=== PATIENT | female | born 1975 | race Two or more races ===

== ENCOUNTER 2017-08-07 07:06 | Day surgery (SDC) | payer OTHER ==
[2017-08-06 09:21] LABS: Basophils # (auto) 0.1 uL; Basophils % (auto) 1.9 % (0.0-2.0); Eosinophils # (auto) 0.1 uL; Eosinophils % (auto) 2.1 % (0.0-7.0); Hematocrit 38.9 % (36.0-46.0); Hemoglobin 12.4 g/dL (12.2-16.2); Lymphocytes # (auto) 1.5 uL; Lymphocytes % (auto) 23.7 % (10.0-50.0); Mean Corpuscular Volume 87.7 fL (80.0-100.0); Mean Platelet Volume 7.4 fL (6.9-10.8); Monocytes # (auto) 0.4 uL; Monocytes % (auto) 6.1 % (0.0-12.0); Neutrophils # (auto) 4.1 uL; Neutrophils % (auto) 66.2 % (37.0-80.0); Platelet Count (auto) 409 10^3/uL (140-450); Red Cell Distribution Width 18.4 % (11.8-14.3); White Blood Cell 6.2 10^3/uL (4.4-10.8)
[2017-08-06 09:23] LABS: Urine Bilirubin Negative (Negative); Urine Blood 3+ /uL (Negative); Urine Color Yellow (Yellow); Urine Glucose Normal (Normal); Urine Ketone Negative (Negative); Urine Mucus FEW (None Seen); Urine Nitrite Negative (Negative); Urine RBC 655 /hpf (0 - 4); Urine Squamous Epithelial Cell FEW /hpf (<5); Urine Urobilinogen Normal (Negative)
[2017-08-06 09:34] LABS: Albumin 3.7 g/dL (3.4-5.0); BUN/Creatinine Ratio 14.8; INR 0.96 (0.9-1.15); Partial Thromboplastin Time 26.7 sec (22.64-33.71); Potassium 4.1 mmol/L (3.5-5.1); Prothrombin Time 10.5 sec (9.37-12.3)
[2017-08-06 09:36] LABS: Bilirubin, Total 0.3 mg/dL (0.2-1.0)
[~2017-08-07] VITALS: Ht 160 cm; Wt 77.1 kg
[2017-08-07] MEDS ORDERED: SODIUM CHLORIDE LOCK 10 ML ONE (14:06)
[2017-08-07] MEDS ORDERED: fentaNYL CITRATE 100 MCG/2 ML VL ONE (14:06)
[2017-08-07] MEDS ORDERED: ONDANSETRON HCL 4 MG/2 ML VIAL ONE (14:06)
[2017-08-07] MEDS ORDERED: MIDAZOLAM HCL 1MG/1ML-2 ML VIAL ONE (14:06)
[2017-08-07] MEDS ORDERED: PROPOFOL 10 MG/ML 20 ML IV ONE (14:06)
[2017-08-07] MEDS ORDERED: METOCLOPRAMIDE HCL 5MG/ml INJ 2ml VIAL IV ONE (14:15)
[2017-08-07] MEDS ORDERED: HYDROmorphone HCL 2 MG/ML VL IV PRN (14:15)
[2017-08-07] MEDS ORDERED: KETOROLAC TROMETH 30 MG/ML 1ML VIAL IV ONE (14:15)
[2017-08-07] MEDS ORDERED: ceFAZolin 1GM/50ML 50 ML IV ONE (14:31)
[2017-08-07] MEDS ORDERED: ONDANSETRON HCL 4 MG/2 ML VIAL IV PRN (15:30)
[2017-08-07 16:28] VITALS: BP 132/88
== END 2017-08-07 16:43 | disposition home or self-care (01) ==
LOC: SUR 07:06
PROVIDERS: ATTEND Specialist
DX: D25.9 Leiomyoma of uterus, unspecified (principal); N92.1 Excessive and frequent menstruation with irregular cycle; I10 Essential (primary) hypertension; Z3A.13 13 weeks gestation of pregnancy; R56.9 Unspecified convulsions
CPT/HCPCS: 36415; 58558; 80053; 81001; 84702; 85025; 85610; 85730; 86850; 86900; 86901; 88305; J0690; J2250; J2405; J2704; J3010

== ENCOUNTER 2025-03-03 14:04 | Inpatient (IN) | payer BC, OTHER ==
[~2025-03-03] VITALS: Ht 160 cm; Wt 86.9 kg
[2025-03-03] VITALS (11 sets, daily range): BP systolic 116–127; BP diastolic 74–87; PULSE 65–90; RESP 12–20; TEMP 97.4–98.6; O2SAT 93–100
--- NOTE | 2025-03-03 14:19 | ECG ---
[facility] Test Date: 2025-03-03 Test Time: 14:09:29 Pat Name: ТАТЬЯНА BETANCOURT Department: ER Room: 0208T Gender: F Underwriting Account Representative: HALEIGH : 1975 Requested By: EMERGENCY EMERGENCY Order Number: [id number] Reading MD: Jean Calle Measurements Intervals [place] Rate: 108 P: 48 NC: 169 QRS: 38 QRSD: 96 T: -10 QT: 356 QTc: 477 Interpretive Statements Sinus tachycardia Probable left atrial enlargement Low voltage, precordial leads Borderline T abnormalities, diffuse leads Electronically Signed On 03-05-2025 16:40:35 PDT by Jean Calle Please click the below link to view image of tracing.
--- NOTE | 2025-03-03 14:29 | ED.PDOC ---
HPI Comments 49 y/o F, with PMHx of HTN presents to the ED for CC of chest pain. Patient states, that she has been experiencing sharp substernal chest pain onset, last night (03/02/25). Patient relays, that she took x1 nitro at start of symptoms and experienced no relief; endorses taking 2nd Nitro with relief of symptoms. Patient comments, that this is her x3 episode in the last week. Patient denies recent cough, fever, palpitations, or shortness of breath. No other symptoms or modifying factors present at this time. Chief Complaint: Chest Pain Time Seen by MD: 14:18 Reviewed Notes: Nurses Notes, Medications, Allergies Allergies: Coded Allergies: NO KNOWN ALLERGIES (Unverified , 08/06/17) Home Meds No Active Prescriptions or Reported Meds Information Source: Patient Mode of Arrival: Ambulatory Severity: Moderate Timing: Days Duration: Since onset Prehospital treatment: None Location: Substernal Radiation: No Radiation Onset: At Rest Cardiac Risk Factors: HTN PE Risk Factors: None History of: Similar pain in past Modifying Factors: Nothing Associated Signs and Symptoms: None Past Medical History PAST MEDICAL HISTORY: HTN Surgical History: Denies all surgeries FUNDRAISING ASSISTANT History: Denies all FUNDRAISING ASSISTANT Hx Family History Family History: Unknown Social History Smoker: Non-Smoker Alcohol: Denies ETOH Use Drugs: Denies Drug Use Lives In: Home Constitutional: denies: chills, diaphoresis, fatigue, fever, malaise, sweats, weakness, others EENTM: denies: blurred vision, double vision, ear bleeding, ear discharge, ear drainage, ear pain, ear ringing, eye pain, eye redness, hearing loss, mouth pain, mouth swelling, nasal discharge, nose bleeding, nose congestion, nose pain, photophobia, tearing, throat pain, throat swelling, voice changes, others Respiratory: denies: cough, hemoptysis, orthopnea, SOB at rest, shortness of breath, SOB with excertion, stridor, wheezing, others Cardiovascular: reports: chest pain; denies: dizzy spells, diaphoresis, Dyspnea on exertion, edema, irregular heart beat, left arm pain, lightheadedness, palpitations, PND, syncope, others Gastrointestinal: denies: abdomen distended, abdominal pain, blood streaked bowels, constipated, diarrhea, dysphagia, difficulty swallowing, hematemesis, melena, nausea, poor appetite, poor fluid intake, rectal bleeding, rectal pain, vomiting, others Genitourinary: denies: abnormal vagina bleeding, burning, dyspareunia, dysuria, flank pain, frequency, hematuria, incontinence, pain, , vagina discharge, urgency, others Neurological: denies: dizziness, fainting, headache, left sided numbness, left sided weakness, numbness, paresthesia, pre-existing deficit, right sided numbness, right sided weakness, seizure, speech problems, tingling, tremors, weakness, others Musculoskeletal: denies: back pain, gout, joint pain, joint swelling, muscle pain, muscle stiffness, neck pain, others Integumetry: denies: bruises, change in color, change in hair/nails, dryness, laceration, lesions, lumps, rash, wounds, others Allergic/Immunocompromised: denies: Difficulty Healing, Frequent Infections, Hives, Itching, others Hematologic/Lymphatic: denies: anemia, blood clots, easy bleeding, easy bruising, swollen glands, others Endocrine: denies: excessive hunger, excessive sweating, excessive thirst, excessive urination, flushing, intolerance to cold, intolerance to heat, unexplained weight gain, unexplained weight loss, others Psychiatric: denies: anxiety, bipolar disorder, depression, hopeless, panic disorder, schizophrenia, sleepless, suicidal, others All Other Systems: Reviewed and Negative Physical Exam General Appearance: Moderate Distress HEENT: Normal ENT Inspection, Pharynx Normal, TMs Normal Neck: Full Range of Motion, Non-Tender, Normal, Normal Inspection Respiratory: Chest Non-Tender, Lungs Clear, No Accessory Muscle Use, No Respiratory Distress, Normal Breath Sounds Cardiovascular: No Edema, No JVD, No Murmur, No Gallop, Tachycardia Breast Exam: Deferred Gastrointestinal: No Organomegaly, Non Tender, No Pulsatile Mass, Normal Bowel Sounds, Soft Genitalia: Deferred Pelvic: Deferred Rectal: Deferred Extremities: No calf tenderness, Normal capillary refill, Normal inspection, Normal range of motion, Non-tender, No pedal edema Musculoskeletal : Apperance: Normal Neurologic: Alert, chef saucier II-XII nml as Tested, No Motor Deficits, Normal Affect, Normal Mood, No Sensory Deficits Cerebellar Function: Normal Reflexes: Normal Skin: Dry, Normal Color, Warm Lymphatic: No Adenopathy EKG EKG : Pulse Rate (adult): 108 Moyers: Normal Cardiac Rhythm: ST Block: None Hypertrophy: None ST: Normal Was a procedure done? Was a procedure done?: No CP Differential Dx Differential Diagnosis: N/A Differential Diagnosis: HTN Essential, HTN Accelerated Differential Diagnosis: Angina, Chest Wall Pain, Costochondritis, Esophageal reflux/spasm, Gastritis X-Ray, Labs, Meds, VS Vital Signs Date Time Temp Pulse Resp B/P (MAP) Pulse Ox O2 Delivery O2 Flow Rate FiO2 03/03/25 15:23 90 17 100 Room Air* 0 21 03/03/25 15:23 98.6 90 17 130/90 (103) 100 98.6 03/03/25 15:04 100 03/03/25 14:29 108 03/03/25 14:16 97.8 112 18 107/87 (94) 95 97.8 03/03/25 14:09 108 Lab Test 03/03/25 14:39 Range/Units White Blood Count 6.6 4.4-10.8 10^3/uL Red Blood Count 4.75 4.0-5.20 10^6/uL Hemoglobin 14.9 12.2-16.2 g/dL Hematocrit 42.6 36.0-46.0 % Mean Corpuscular Volume 89.5 80.0-100.0 fL Mean Corpuscular Hemoglobin 31.3 28.0-32.0 pg Mean Corpuscular Hemoglobin Concent 35.0 32.0-36.0 g/dL Red Cell Distribution Width 13.6 11.8-14.3 % Platelet Count 323 140-450 10^3/uL Mean Platelet Volume 7.8 6.9-10.8 fL Neutrophils (%) (Auto) 62.2 37.0-80.0 % Lymphocytes (%) (Auto) 26.7 10.0-50.0 % Monocytes (%) (Auto) 6.8 0.0-12.0 % Eosinophils (%) (Auto) 3.3 0.0-7.0 % Basophils (%) (Auto) 1.0 0.0-2.0 % Neutrophils # (Auto) 4.1 1.6-8.6 10 ^3/uL Lymphocytes # (Auto) 1.8 0.4-5.4 10 ^3/uL Monocytes # (Auto) 0.4 0-1.3 10 ^3/uL Eosinophils # (Auto) 0.2 0-0.8 10 ^3/uL Basophils # (Auto) 0.1 0-0.2 10 ^3/uL Nucleated Red Blood Cells 0.1 % Sodium Level 143 136-145 mmol/L Potassium Level 3.8 3.5-5.1 mmol/L Chloride Level 106 98-107 mmol/L Carbon Dioxide Level 26 20-31 mmol/L Anion Gap 11 5-15 Blood Urea Nitrogen 12 9-23 mg/dL Creatinine 0.73 0.550-1.02 mg/dL Glomerular Filtration Rate Calc 100 >90 mL/min BUN/Creatinine Ratio 16.4 10.0-20.0 Serum Glucose 126 H 74-106 mg/dL Calcium Level 9.7 8.7-10.4 mg/dL Troponin I High Sensitivity < 3 L </=34 ng/L Current Medications Medications (Trade) Dose Ordered Sig/Moses Route Start Time Stop Time Status Last Admin Aspirin 162 mg ONCE ONCE PO 03/03/25 14:30 03/03/25 14:31 DC 03/03/25 15:23 CXR: IMPRESSION: No evidence of acute disease. The patient's CBC and chemistry panel are within normal limits The 1st troponin level is negative The D-dimer is pending The patient was given aspirin 162 mg by mouth At this time, the patient is being admitted to the hospitalist A cardiology consult will be obtained. The patient understands and agrees with the management. Feel that this patient's ongoing chest pain could be acute myocardial ischemia Images Reviewed?: Images reviewed and evaluated by me Time of 1ST Reevaluation: 14:48 Reevaluation 1ST: Unchanged Patient Education/Counseling: Diagnosis, Treatment, Prognosis Family Education/Counseling: No Family Present Departure 1 Departure Time of Disposition: 15:48 Impression: Primary Impression: Acute myocardial ischemia Disposition: 09 ADMITTED INPATIENT Admit to: [facility] Condition: Fair e-Prescriptions No Active Prescriptions or Reported Meds Critical Care Note Critical Care Time?: No Stability Stability form required: No Heart Score Heart Score: Heart Score Response (Comments) Value History N/A 0 EKG N/A 0 Age N/A 0 Risk Factors N/A 0 Troponin N/A 0 Total 0 I personally scribed for IVÁN MEADOWS MD ([email or web address]) on 6/13/25 at 14:29. Electronically submitted by Yesenia Bray ([email or web address]). I personally scribed for IVÁN MEADOWS MD ([email or web address]) on 03/03/25 at 14:54. Electronically submitted by Yesenia Bray ([email or web address]). IVÁN MEADOWS MD Mar 03, 2025 14:29
--- NOTE | 2025-03-03 14:41 | DVH ---
CHEST RADIOGRAPH Indication: cp Technique: Frontal and lateral view of the chest was obtained Comparison: None FINDINGS: Lines and Tubes: None Lungs: Clear Pleura: No effusion. No pneumothorax. Cardiomediastinal contours: Unremarkable Bones: Unremarkable IMPRESSION: No evidence of acute disease.
[2025-03-03 14:53] LABS: Basophils # (auto) 0.1 10 ^3/uL (0-0.2); Eosinophils # (auto) 0.2 10 ^3/uL (0-0.8); Eosinophils % (auto) 3.3 % (0.0-7.0); Hematocrit 42.6 % (36.0-46.0); Hemoglobin 14.9 g/dL (12.2-16.2); Lymphocytes # (auto) 1.8 10 ^3/uL (0.4-5.4); Lymphocytes % (auto) 26.7 % (10.0-50.0); Mean Corpuscular Hemoglobin 31.3 pg (28.0-32.0); Mean Corpuscular Volume 89.5 fL (80.0-100.0); Monocytes # (auto) 0.4 10 ^3/uL (0-1.3); Monocytes % (auto) 6.8 % (0.0-12.0); Neutrophils # (auto) 4.1 10 ^3/uL (1.6-8.6); Neutrophils % (auto) 62.2 % (37.0-80.0); Nucleated Red Blood Cells % 0.1 %; Platelet Count (auto) 323 10^3/uL (140-450); Red Blood Cells 4.75 10^6/uL (4.0-5.20); Red Cell Distribution Width 13.6 % (11.8-14.3); White Blood Cell 6.6 10^3/uL (4.4-10.8)
[2025-03-03 15:04] LABS: Chloride 106 mmol/L (98-107); Potassium 3.8 mmol/L (3.5-5.1); Sodium 143 mmol/L (136-145)
[2025-03-03 15:05] LABS: Anion Gap 11 (5-15); Calcium 9.7 mg/dL (8.7-10.4); Carbon Dioxide 26 mmol/L (20-31)
[2025-03-03 15:10] LABS: BUN/Creatinine Ratio 16.4 (10.0-20.0); Blood Urea Nitrogen 12 mg/dL (9-23)
[2025-03-03 15:14] LABS: Glucose 126 mg/dL (74-106)
[2025-03-03] MEDS: ASPirin 81 mg TAB PO ONE (15:23)
[2025-03-03] MEDS ORDERED: NITROGLYCERIN 0.4 MG SL TAB SL PRN (16:45)
[2025-03-03] MEDS ORDERED: MORPHINE SULFATE INJ 2 MG/ml SYRG IV PRN (16:45)
--- NOTE | 2025-03-03 16:54 | DVHINCON2 ---
Date Seen: Mar 03, 2025 Referring Physician MD Sloane Reason for Consultation Ongoing chest pain History of Present Illness This is a 49-year-old female patient who presents to the emergency room with chief complaint of chest pain. The patient reports that the chest pain initially began two weeks ago. Within a two week period, she has experienced three episodes of chest pain. She describes the chest pain as unprovoked, intermittent, sharp in nature, midsternal and nonradiating. Associated symptoms include shortness of breath. The patient reports that the pain became so severe last night that she decided to take a nitroglycerin (that was prescribed to her late mother), with relief. She decided to come to the emergency room for further evaluation. Initial twelve lead electrocardiogram reveals sinus tachycardia with ST segment changes to inferior leads. Initial troponin level was negative. Significant past medical history includes hypertension, asthma, COVID pneumonia in 2020, and obesity. The patient denies any previous cardiac workup. The patient reports significant familial cardiac history with her mother who had coronary artery disease with stent placement. Past Medical History Past medical history reviewed. No other significant than mentioned above. Past Surgical History Hiatal hernia repair Family History Family history reviewed. Social History Denies the use of tobacco, alcohol or illicit drugs. Allergies: Coded Allergies: NO KNOWN ALLERGIES (Unverified , 08/06/17) Home Meds No Active Prescriptions or Reported Meds Home Meds Home medications reviewed. Current Medications Current Medications Medications (Trade) Dose Ordered Sig/Moses Route PRN Reason Start Time Stop Time Status Last Admin Nitroglycerin (Ntrostat Sublingual) 0.4 mg Q5MINP PRN SL FOR CHEST PAIN 03/03/25 16:45 Morphine Sulfate 2 mg Q30M PRN IV FOR CHEST PAIN 03/03/25 16:45 Review of Systems Constitutional: No symptom reported Ears, Nose, & Throat: No symptom reported Eyes: No symptom reported Neurological: No symptoms reported Pulmonary/Respiratory: Shortness of breath Cardiovascular: Chest pain Gastrointestinal: No symptom reported Genitourinary: No symptom reported Musculoskeletal: No symptom reported Skin: No symptom reported Psychiatric: No symptom reported Endocrine: No symptom reported Hematologic/Lymphatic: No symptom reported Vital Signs Vital Signs Date Time Temp Pulse Resp B/P (MAP) Pulse Ox O2 Delivery O2 Flow Rate FiO2 03/03/25 15:23 90 17 100 Room Air* 0 21 03/03/25 15:23 98.6 130/90 (103) 98.6 Physical Exam General Appearance: Cooperative. Well-developed. Well-nourished. No acute distress. Pulmonary/Respiratory: Clear, bilateral breaths sounds. Cardiovascular/Chest: Regular rate and rhythm. Peripheral Pulses: 2+ Radial (R). 2+ Radial (L). 2+ Pedal (R). 2+ Pedal (L) Abdominal Exam: Normal bowel sounds. Ankle Exam: Nonpitting bilateral ankle edema Lower extremities: Nonpitting bilateral lower extremity edema Neuro/Mental Status: A/OX4, coherent. Thoughts/Psych: Normal thought pattern. Appropriate mood and affect. Good judgment and insight. Appearance: No acute distress. Skin Exam: Normal inspection. Normal color. Warm and dry. Labs/Diagnostic Data Labs Test 03/03/25 16:00 03/03/25 14:39 Range/Units Troponin I High Sensitivity < 3 L </=34 ng/L White Blood Count 6.6 4.4-10.8 10^3/uL Red Blood Count 4.75 4.0-5.20 10^6/uL Hemoglobin 14.9 12.2-16.2 g/dL Hematocrit 42.6 36.0-46.0 % Mean Corpuscular Volume 89.5 80.0-100.0 fL Mean Corpuscular Hemoglobin 31.3 28.0-32.0 pg Mean Corpuscular Hemoglobin Concent 35.0 32.0-36.0 g/dL Red Cell Distribution Width 13.6 11.8-14.3 % Platelet Count 323 140-450 10^3/uL Mean Platelet Volume 7.8 6.9-10.8 fL Neutrophils (%) (Auto) 62.2 37.0-80.0 % Lymphocytes (%) (Auto) 26.7 10.0-50.0 % Monocytes (%) (Auto) 6.8 0.0-12.0 % Eosinophils (%) (Auto) 3.3 0.0-7.0 % Basophils (%) (Auto) 1.0 0.0-2.0 % Neutrophils # (Auto) 4.1 1.6-8.6 10 ^3/uL Lymphocytes # (Auto) 1.8 0.4-5.4 10 ^3/uL Monocytes # (Auto) 0.4 0-1.3 10 ^3/uL Eosinophils # (Auto) 0.2 0-0.8 10 ^3/uL Basophils # (Auto) 0.1 0-0.2 10 ^3/uL Nucleated Red Blood Cells 0.1 % D-Dimer, Quantitative < 0.19 0.0-0.49 mg/L FEU Sodium Level 143 136-145 mmol/L Potassium Level 3.8 3.5-5.1 mmol/L Chloride Level 106 98-107 mmol/L Carbon Dioxide Level 26 20-31 mmol/L Anion Gap 11 5-15 Blood Urea Nitrogen 12 9-23 mg/dL Creatinine 0.73 0.550-1.02 mg/dL Glomerular Filtration Rate Calc 100 >90 mL/min BUN/Creatinine Ratio 16.4 10.0-20.0 Serum Glucose 126 H 74-106 mg/dL Calcium Level 9.7 8.7-10.4 mg/dL Assessment Chest pain, rule out coronary artery disease Hypertension Rule out structural heart disease Asthma Obesity Plan/Recommendation We will continue with the following plan/recommendations (Dr. Calle): Case discussed with . Given the patient's clinical presentation, comorbidities, and twelve lead electrocardiogram changes, the patient may benefit from a coronary angiogram with left heart catheterization. The procedure was discussed with the patient in full detail including risks and benefits. Risks include but are not limited to bleeding, contrast-induced nephropathy, stroke, and even . The patient understands and is agreeable to undergo the procedure. We will schedule the patient at soonest availability. In the meantime, continue with close cardiac surveillance. We will proceed with obtaining a transthoracic echocardiogram to evaluate cardiac function. Continue with blood pressure control. Thank you for allowing us to care for this patient. Please call with any questions or concerns. Critical care time spent: 42 minutes This medical document was created using an electronic medical record system with voice recognition software and computerized dictation system. Although this document has been carefully reviewed, there might still be some phonetic and typographical errors. Occasional wrong-word or ``sound-alike substitutions may have occurred due to the inherent limitations of voice recognition software. These areas are purely typographical due to imperfections of the software programs and do not reflect any compromise in the patient's medical care. Please read the chart carefully and recognize, using context, where these substitutions have occurred. Plan discussed with: Patient NYHA Physical activity limitations: NA Date of Service: Mar 03, 2025 Billing Provider: BARBARA CARVER Cardiology Common Codes: 74192-[id number] INP/OBS CARE (High) Cardiology Consultation Codes: 97270-[id number] CONSULT <45MIN BARBARA CARVER Mar 03, 2025 16:54
[2025-03-03] MEDS: HEPARIN SODIUM (PORCINE) 5000 UNITS/ML 1ML VIAL ONE (17:02)
[2025-03-03] MEDS: ANGIOMAX 250 MG VIAL IV ONE (17:02)
[2025-03-03] MEDS: SODIUM CHL 0.9% 0 ML ONE (17:03)
[2025-03-03] MEDS: LIDOCAINE 2%HCL (LOCAL ANESTH.) INJ 10ml MDV ONE (17:03)
[2025-03-03 17:08] LABS: INR 0.97 (0.9-1.15); Partial Thromboplastin Time 27.3 SEC (24.5-34.5); Prothrombin Time 10.3 sec (9.3-11.8)
[2025-03-03] MEDS: VERAPAMIL 2.5MG/ML INJ 2ML VIAL IV ONE (17:14)
[2025-03-03] MEDS: MIDAZOLAM HCL 2MG/2ML 2ml VIAL (1mg/ml) ONE (17:15)
[2025-03-03] MEDS: fentaNYL CITRATE 100 MCG/2 ML VL ONE (17:17)
--- NOTE | 2025-03-03 17:47 | DVHOP2 ---
Operative Report - 2 Report Details Date: 03/03/25 Preop Diagnosis: CAD Postop Diagnosis: Myocardial bridge Surgeon: Noreen Calle MD Anesthesiologist: Conscious sedation Anesthesia: Mac, Local Consent: The patient was informed of the risks and benefits of the procedure. These include but are not limited to complications of anesthesia, postoperative infection, incomplete relief of symptoms, recurrence of symptoms, damage to blood vessels, nerves and tendons, deep venous thrombosis, pulmonary embolism and possible need for repeat surgery in the future. Complications: No complications Findings: Myocardial bridging, mild CAD Indications for Surgery: Chest pain. Abnormal EKG. Name of Procedure Performed Left heart catheterization bilateral cine coronary angiography. Left ventriculography. Procedure Details Procedure Details: Prior local anesthesia with 2% lidocaine to the right wrist and full informed consent obtained patient was prepped and draped in usual fashion with ultrasound guidance we gained access into the radial artery followed by placement of a six Nigerian sheath and subsequent multipurpose catheter into the right and left coronary ostium and for ventriculography. Hemodynamics: Aortic blood pressure was 110/70. No gradient across the aortic valve on pullback. End-diastolic pressure was eight. Coronary anatomy the RCA is a large dominant system it is normal in its proximal mid and distal segments. The PDA and posterolateral branches are normal. Left main is large and normal. Left anterior descending coronary artery is large and normal. There is a mid 30-40% stenosis there was a myocardial bridge in the mid LAD. Diagonals are normal. The circumflex is large with three obtuse marginal branches which are large and normal. There was a very small marginal comes off adjacent to the ostium of the circumflex and left main that has a 90 5% stenosis this is a small artery. It measures less than 1.5 mm in diameter is very short. Not amenable to angiop lasty. Ventriculography in the NIELSON projection shows an EF of 65% without valvular dysfunction. Impression: Normal left ventricular end-diastolic pressure rest normal ejection fraction. Mild myocardial bridging of the LAD. Recommendations: Given mild myocardial bridging in mid LAD and mild disease involving a very small marginal branch medical is warranted. Continue risk factor modification. Condition Good Disposition Still a Patient Date of Service: Mar 03, 2025 Billing Provider: NOREEN CALLE Sr., MD Cardiology Common Codes: 31072-[id number] INP/OBS CARE (High), PROCEDURE ONLY Cardiology Procedure Codes: 83448-FOAE HEART CATH W/INTRA INJ CALLE,NOREEN A Sr. MD Mar 03, 2025 17:47
[2025-03-03 20:24] LABS: Magnesium 2.1 mg/dL (1.6-2.6)
[2025-03-03] MEDS: ATORVASTATIN 20 MG TAB PO SCH (21:06)
[2025-03-04 01:00] VITALS: BP 112/73; PULSE 66; RESP 17; TEMP 96.3; O2SAT 96
[2025-03-04 05:00] VITALS: BP 110/64; PULSE 66; RESP 17; TEMP 97.1; O2SAT 98
[2025-03-04 08:00] VITALS: PULSE 72
[2025-03-04] MEDS: ASPirin 81 mg TAB PO SCH (08:44)
[2025-03-04] MEDS: dilTIAZem HCL 60 MG TAB PO SCH (08:52)
[2025-03-04 09:00] VITALS: BP 105/63; PULSE 60; RESP 18; TEMP 97.1; O2SAT 95
[2025-03-04] MEDS ORDERED: ASPI1TAB19 PO (12:43)
[2025-03-04] MEDS ORDERED: ATOR20TA PO (12:43)
[2025-03-04] MEDS ORDERED: DILT120C54 PO (12:43)
--- NOTE | 2025-03-04 12:53 | DVHPN2 ---
Consult Progress Note Subjective Patient reports: No new complaints Review of Systems: CVS:Normal (Denies CP, Palpitations, SOB) Objective vital signs Vital Sign Date Time Temp Pulse Resp B/P (MAP) Pulse Ox O2 Delivery O2 Flow Rate FiO2 03/04/25 09:00 97.1 60 18 105/63 (77) 95 97.1 03/04/25 08:00 Room Air* 0 21 Total Intake and Output 03/03/25 03/03/25 03/04/25 15:00 23:00 07:00 Intake Total 250 ml Balance 250 ml medications Current Medications Medications Dose Ordered Sig/Moses Route Start Time Stop Time Status Last Admin Dose Admin Nitroglycerin 0.4 mg Q5MINP PRN SL 03/03/25 16:45 Morphine Sulfate 2 mg Q30M PRN IV 03/03/25 16:45 Aspirin 81 mg DAILY PO 03/04/25 10:00 03/04/25 08:44 81 MG Atorvastatin Calcium 20 mg HS PO 03/03/25 22:00 03/03/25 21:06 20 MG Diltiazem HCl 90 mg DAILY PO 03/04/25 10:00 Examination: CVS:Normal (Telemetry reviewed, consistent with sinus rhythm at 68 beats per minute, no overnight events noted.) laboratory and microbiology Laboratory Tests 03/03/25 14:39 Test 03/03/25 14:39 Range/Units Serum Glucose 126 H 74-106 mg/dL Problem List/Assessment/Plan Problem List/Assessment/Plan Assessment Chest pain, rule out coronary artery disease Hypertension Rule out structural heart disease Asthma Obesity Plan/Recommendation We will continue with the following plan/recommendations (Dr. Calle): Case discussed with . Given the patient's clinical presentation, comorbidities, and twelve lead electrocardiogram changes, patient underwent coronary angiogram showing mild myocardial bridging of LAD, continue medical management. Troponins negative. Left ventriculogram showing EF 65%. Follow up echo. If no significant abnormalities noted on echo, patient is stable from Cardiology standpoint. Patient to continue with Cardizem upon discharge, hold losartan. There is no further cardiac work-up indicated at this time. Thank you for allowing us to participate in this patient's care. This medical document was created using an electronic medical record system with voice recognition software and computerized dictation system. Although this document has been carefully reviewed, there might still be some phonetic and typographical errors. Occasional wrong-word or ``sound-alike substitutions may have occurred due to the inherent limitations of voice recognition software. These areas are purely typographical due to imperfections of the software programs and do not reflect any compromise in the patient's medical care. Please read the chart carefully and recognize, using context, where these substitutions have occurred. Thank you for allowing me to participate in the management of this patient. The treatment plan was discussed with and agreed upon by patient/family including requesting consultants and ordering of imaging/procedures. Plan discussed with: Patient Date of Service: Mar 04, 2025 Billing Provider: BEV MEDINA Common Visit Codes: [id number] INP/OBS CARE(HIGH) BEV MEDINA Mar 04, 2025 12:53
[2025-03-04 13:00] VITALS: BP 133/84; PULSE 79; RESP 18; TEMP 98.1; O2SAT 96
--- NOTE | 2025-03-04 17:15 | DVHDS2 ---
Discharge Summary Date of Admission Mar 03, 2025 at 16:39 Date of Discharge: Mar 04, 2025 Labs/Diagnostic Data: Laboratory Results Test 03/03/25 19:50 03/03/25 14:39 Magnesium Level 2.1 mg/dL (1.6-2.6) Troponin I High Sensitivity 17 ng/L (</=34) Triglycerides Level 88 mg/dL (< 150) Cholesterol Level 160 mg/dL (< 200) LDL Cholesterol 103 mg/dL (< 100) HDL Cholesterol 48 mg/dL (40-59) Thyroid Stimulating Hormone (TSH) 2.09 uIU/mL (0.55-4.78) White Blood Count 6.6 10^3/uL (4.4-10.8) Red Blood Count 4.75 10^6/uL (4.0-5.20) Hemoglobin 14.9 g/dL (12.2-16.2) Hematocrit 42.6 % (36.0-46.0) Mean Corpuscular Volume 89.5 fL (80.0-100.0) Mean Corpuscular Hemoglobin 31.3 pg (28.0-32.0) Mean Corpuscular Hemoglobin Concent 35.0 g/dL (32.0-36.0) Red Cell Distribution Width 13.6 % (11.8-14.3) Platelet Count 323 10^3/uL (140-450) Mean Platelet Volume 7.8 fL (6.9-10.8) Neutrophils (%) (Auto) 62.2 % (37.0-80.0) Lymphocytes (%) (Auto) 26.7 % (10.0-50.0) Monocytes (%) (Auto) 6.8 % (0.0-12.0) Eosinophils (%) (Auto) 3.3 % (0.0-7.0) Basophils (%) (Auto) 1.0 % (0.0-2.0) Neutrophils # (Auto) 4.1 10 ^3/uL (1.6-8.6) Lymphocytes # (Auto) 1.8 10 ^3/uL (0.4-5.4) Monocytes # (Auto) 0.4 10 ^3/uL (0-1.3) Eosinophils # (Auto) 0.2 10 ^3/uL (0-0.8) Basophils # (Auto) 0.1 10 ^3/uL (0-0.2) Nucleated Red Blood Cells 0.1 % Prothrombin Time 10.3 sec (9.3-11.8) Prothrombin Time INR 0.97 (0.9-1.15) Activated Partial Thromboplast Time 27.3 SEC (24.5-34.5) D-Dimer, Quantitative < 0.19 mg/L FEU (0.0-0.49) Sodium Level 143 mmol/L (136-145) Potassium Level 3.8 mmol/L (3.5-5.1) Chloride Level 106 mmol/L (98-107) Carbon Dioxide Level 26 mmol/L (20-31) Anion Gap 11 (5-15) Blood Urea Nitrogen 12 mg/dL (9-23) Creatinine 0.73 mg/dL (0.550-1.02) Glomerular Filtration Rate Calc 100 mL/min (>90) BUN/Creatinine Ratio 16.4 (10.0-20.0) Serum Glucose 126 mg/dL (74-106) Hemoglobin A1c 5.4 % A1C (<5.7) Calcium Level 9.7 mg/dL (8.7-10.4) Other Laboratory Tests 03/03/25 14:39 Brief Hx & Hospital Course: Final diagnoses: Chest pain, due to coronary artery disease Hypertension Rule out structural heart disease Asthma Obesity She had a heart cath, the result: Coronary anatomy the RCA is a large dominant system it is normal in its proximal mid and distal segments. The PDA and posterolateral branches are normal. Left main is large and normal. Left anterior descending coronary artery is large and normal. There is a mid 30-40% stenosis there was a myocardial bridge in the mid LAD. Diagonals are normal. The circumflex is large with three obtuse marginal branches which are large and normal. There was a very small marginal comes off adjacent to the ostium of the circumflex and left main that has a 90 5% stenosis this is a small artery. It measures less than 1.5 mm in diameter is very short. Not amenable to angioplasty. Medical treatment was advised Continue aspirin Cardizem CD 120 mg qd Lipitor 20 mg qhs DC Losartan Condition at Discharge: Stable Final Diagnosis/Problems List Myocardial bridge CAD HTN Mixed hyperlipidemia Discharge Disposition: Home SNF Discharge Will this Physician continue t: No Discharge Instruct/Medications Diet: Cardiac 2g Na,low cholest Activity: No Restrictions, As Tolerated Follow Up/Referral: PCP KRYSTA Medications: Aspirin 81 mg qd Lipitor 20 mg qhs Cardizem CD 120 mg qd STOP Losartan Discharge Statement: "Patient was advised to return to the ER or call 911 if any headaches, dizziness, shortness of breath, chest pain, abdominal pain, bleeding, fevers, or worsening of medical condition. Patient was counseled about treatment plan, medications, possible side effects, patientverbalized understanding. All questions were answered to the best of my ability. This discharge took greater then 30 minutes in planning, reviewing documentation, counseling the patient, and discussing with other team members." ASSESSMENT ASSESSMENT Assessment Myocardial bridge CAD HTN Mixed hyperlipidemia Date of Service: Mar 04, 2025 Billing Provider: WYATT MELÉNDEZ MD Common Visit Codes: 39259-JUU/OBS DISCH DAY >30min WYATT MELÉNDEZ MD Mar 04, 2025 17:15
--- NOTE | 2025-03-05 14:18 | DVHSR ---
APPROVED REPORT EXAM: Two-dimensional and M-mode echocardiogram with Doppler and color Doppler. Blood Pressure: 110/64 mmHg INDICATION Evaluate cardiac function RISK FACTORS Height: 5'3", Weight: 191 DIMENSIONS LVDd4.1 (3.8-5.7cm)LA (2D)3.9 (1.9-4.0cm)Aortic Root3.2 (2.0-3.7cm) LVDs2.9 (2.5-4.0cm)LA (MM) (1.9-4.0cm)Aortic Cusp Exc1.8 (1.5-2.0cm) EF (%) 60.0 (55-70%)Rt. Atrium4.5 (1.9-4.0cm)Asc. Aorta cm IVSd1.1 (0.7-1.1cm)RV (D) (1.8-2.4cm) PWd0.9 (0.7-1.1cm) Mitral Valve MitralMitral Stenosis E wave0.81m/sMV Mean GR.mmHg A wave1.01m/sMV Peak GR.mmHg E/A ratio0.82D MVAcm2 DECEL [id number] 1/2 [place] Aortic Valve Aortic ValveAortic Stenosis V11.22m/Aris Mean GR.4mmHg V21.45m/Aris Peak GR.8mmHg LVOT Diameter1.9 (1.8-2.4cm)Doppler AVA2.38cm2 Pulmonic Valve V20.91m/s Tricuspid Valve TR Velocity2.39m/s [id number] Conclusion Sinus rhythm. Biatrial enlargement. Valves are normal. EF of 65% with normal RV function. Dopplers unremarkable. Mild TR. No pericardial effusion masses or vegetations.
--- NOTE | 2025-03-06 14:37 | ECG ---
[facility] Test Date: 2025-03-03 Test Time: 15:04:14 Pat Name: ТАТЬЯНА BETANCOURT Department: ER Room: 0208T Gender: F Blade Aligner: INDRA : 1975 Requested By: EMERGENCY EMERGENCY Order Number: [id number] Reading MD: Measurements Intervals [place] Rate: 100 P: 54 TX: 162 QRS: 97 QRSD: 93 T: 35 QT: 337 QTc: 435 Interpretive Statements Sinus tachycardia Borderline right axis deviation Please click the below link to view image of tracing.
== END 2025-03-04 16:47 | disposition home or self-care (01) | DRG 287 ==
LOC: ER 14:04 → OVERFLOW 16:39 → TELE-CENTR 18:40
PROVIDERS: ADMIT Internal Medicine; ATTEND Internal Medicine
PROC: 4A023N7 Measurement of Cardiac Sampling and Pressure, Left Heart, Percutaneous Approach (ICD-10-PCS; principal; 2025-03-03)
PROC: B2111ZZ Fluoroscopy of Multiple Coronary Arteries using Low Osmolar Contrast (ICD-10-PCS; 2025-03-03)
PROC: B2151ZZ Fluoroscopy of Left Heart using Low Osmolar Contrast (ICD-10-PCS; 2025-03-03)
DX: I25.10 Atherosclerotic heart disease of native coronary artery without angina pectoris (principal); Q24.5 Malformation of coronary vessels; E66.9 Obesity, unspecified; J45.909 Unspecified asthma, uncomplicated; Z68.33 Body mass index [BMI] 33.0-33.9, adult; I11.9 Hypertensive heart disease without heart failure; E78.2 Mixed hyperlipidemia; Z95.5 Presence of coronary angioplasty implant and graft; Z87.01 Personal history of pneumonia (recurrent); Z86.16 Personal history of COVID-19
CPT/HCPCS: 36415; 71046; 80048; 80061; 83036; 83735; 84443; 84484; 85025; 85379; 85610; 85730; 93005; 93306; 93458; 99152; G0378; J2003; J2250